=== PATIENT | female | born 1990 | race Caucasian/White ===

== ENCOUNTER → 2016-11-24 | Outpatient (CLI) | payer SELFPAY ==
[2015-12-12 08:54] VITALS: BP 123/90
--- NOTE | 2016-11-24 09:26 | RAD ---
HISTORY: Pain Study: Lumbar spine series Comparison: None Findings: There is mild to moderate disc space narrowing throughout. The vertebral body height is well maintai yumi throughout. No fracture for subluxation is seen. The bones are well mineralized. There are mild sclerotic changes of the sets inferiorly with no pars defects. IMPRESSION: Mild to moderate degenerative disc space narrowing throughout and mild osteoarthritic changes of the sets with no acute abnormality seen. Reported By:
== END ==
LOC: RAD 08:41
PROVIDERS: ATTEND Internal Medicine
DX: M54.5 Low back pain (principal)
CPT/HCPCS: 72100

== ENCOUNTER 2017-04-04 03:30 | Emergency (ER) | payer SELFPAY ==
[2017-04-04 03:36] VITALS: BP 144/81; BMI 31.9
--- NOTE | 2017-04-04 03:59 | DR.GENAD ---
HPI - PCP Primary Care Physician: CARA - Complaint/Symptoms Chief Complaint Doctors Comments: Patient admits to stomach pain associated with vomiting and diarrhea for two days Chief Complaint:: ABD PAIN FOR 2 DAYS, N/V/D Self Treatment fo Chief Complaint: TYLENOL - Source History Provided: Patient - Mode of Arrival Mode of Arrival: Ambulatory - Timing Onset of Chief Complaint: 04/02/17 PMH - PMH Past Medical History: No Past Surgical History: Yes Surgical History: Tonsillectomy - Family History History of Family Medical Conditions: Yes Family Medical History: Hypertension - Social History Does patient currently use any type of tobacco product: No Have you used tobacco products in the last 12 months: No Type of Tobacco Use: None Does any household member use tobacco: No Alcohol Use: None Do you use any recreational Drugs:: No Lives With: Family Lives Where: Home - infectious screening Have you traveled outside the country in the last 6 months?: No Isolation: Standard ROS - Review of Systems Constitutional: negative: Diaphoresis Eyes: No Symptoms Reported ENTM: No Symptoms Reported Respiratoy: No Symptoms Reported Cardiovascular: No Symptoms Reported Gastrointestinal/Abdominal: Abdominal Pain Genitourinary: No Symptoms Reported Neurological: No Symptoms Reported Musculoskeletal: No Symptoms Reported Integumentary: No Symptoms Reported Hematologic/Lymphatic: No Symptoms Reported Endocrine: No Symptoms Reported Psychiatric: No Symptoms Reported All Other Systems: Reviewed and Negative PE - Vital Signs Vitals: Temperature 98.3 F Pulse Rate 68 Respiratory Rate 18 Blood Pressure 144/81 O2 Sat by Pulse Oximetry 99 - General General Appearance: Alert, In No Apparent Distress - Head Head Exam: Normal Inspection, Atraumatic - Eyes Eye exam: Normal Appearance, PERRL, EOMI - ENT ENT Exam: Normal Exam TM/Canal Exam: Bilateral Normal Nose Exam: Normal Nose Exam, Sinus Tenderness Mouth Exam: Normal Inspection Throat Exam: Normal Inspection - Neck Neck Exam: Normal Inspection - Chest Chest Inspection: Normal Inspection, Symmetric Chest Wall Rise - Respiratory Respiratory Exam: Normal Lung Sounds Bilat Respiratory Exam: Bilateral Clear to Auscultation - Cardiovascular Cardiovascular Exam: Regular Rate - Abdominal Exam Abdominal Exam: Normal Inspection Abdominal Tenderness: Diffuse - Extremities Extremities Exam: Normal Inspection - Back Back Exam: Normal Inspection, Full ROM - Neurologic Neurological Exam: Alert, Oriented X3, CN II-XII Intact - Psychiatric Psychiatric Exam: Normal Affect, Normal Mood Course - Reevaluation 1st: Improved ROR - Labs Reviewed Laboratory Results Reviewed?: Yes (H pylori positive) Result Diagrams: 04/04/17 04:08 04/04/17 04:08 Laboratory: WBC 10.9 X10^3/uL (3.6-10.0) H 04/04/17 04:08 RBC 4.63 X10^6/uL (3.5-5.4) 04/04/17 04:08 Hgb 12.9 g/dL (12.0-16.0) 04/04/17 04:08 Hct 37.5 % (36.0-47.0) 04/04/17 04:08 MCV 81.0 fL (80.0-100.0) 04/04/17 04:08 MCH 27.8 pg (27.0-34.0) 04/04/17 04:08 MCHC 34.3 g/dL (33.0-35.0) 04/04/17 04:08 RDW 13.6 % (11.6-16.5) 04/04/17 04:08 Plt Count 387 X10^3/uL (150.0-450.0) 04/04/17 04:08 MPV 7.5 fL (7.4-11.0) 04/04/17 04:08 Neut % 64.4 % (42.0-75.0) 04/04/17 04:08 Lymph % 25.5 % (21.0-51.0) 04/04/17 04:08 Murray % 7.8 % (0.0-13.0) 04/04/17 04:08 Eos % 1.9 % (0.9-2.9) 04/04/17 04:08 Baso % 0.4 % (0.2-1.0) 04/04/17 04:08 Neut # 7.0 x10^3/uL (2.2-4.8) H 04/04/17 04:08 Lymph # 2.8 X10^3/uL (1.3-2.9) 04/04/17 04:08 Murray # 0.9 x10^3/uL (0.3-0.8) H 04/04/17 04:08 Eos # 0.2 x10^3/uL (0.0-0.2) 04/04/17 04:08 Baso # 0.0 X10^3/uL (0.0-0.1) 04/04/17 04:08 Absolute Nucleated RBC 0.0 /100WBC 04/04/17 04:08 Sodium 139 mmol/L (136-145) 04/04/17 04:08 Corrected Sodium 139 mmol/L (136-145) 04/04/17 04:08 Potassium 3.8 mmol/L (3.5-5.1) 04/04/17 04:08 Chloride 104 mmol/L (98-107) 04/04/17 04:08 Carbon Dioxide 29.1 mmol/L (21-32) 04/04/17 04:08 BUN 9 mg/dL (7-18) 04/04/17 04:08 Creatinine 0.68 mg/dL (0.55-1.02) 04/04/17 04:08 Est GFR (MDRD) Af Amer > 60 (>60) 04/04/17 04:08 Est GFR (MDRD) Non-Af > 60 (>60) 04/04/17 04:08 Glucose 111 mg/dL (65-99) H 04/04/17 04:08 Calcium 8.3 mg/dL (8.5-10.1) L 04/04/17 04:08 Corrected Calcium TNP 04/04/17 04:08 Total Bilirubin 0.20 mg/dL (0.2-1.0) 04/04/17 04:08 AST 15 Units/L (15-37) 04/04/17 04:08 ALT 27 Units/L (12-78) 04/04/17 04:08 Alkaline Phosphatase 60 Units/L (46-116) 04/04/17 04:08 C-Reactive Protein 8.20 mg/L (0-3.0) H 04/04/17 04:08 Total Protein 7.4 g/dL (6.4-8.2) 04/04/17 04:08 Albumin 3.7 g/dL (3.4-5.0) 04/04/17 04:08 Globulin 3.7 g/dL (2.5-4.5) 04/04/17 04:08 Albumin/Globulin Ratio 1.0 Ratio (1.1-2.1) L 04/04/17 04:08 Specimen Type Clean catch urine 04/04/17 03:57 Urine Color Yellow (YELLOW) 04/04/17 03:57 Urine Appearance Slightly hazy (CLEAR) 04/04/17 03:57 Urine pH 5.0 (5.0 - 8.0) 04/04/17 03:57 Ur Specific [place] 1.025 (1.000-1.030) 04/04/17 03:57 Urine Protein 1+ (NEGATIVE) 04/04/17 03:57 Urine Glucose (UA) Negative (NEGATIVE) 04/04/17 03:57 Urine Ketones Negative (NEGATIVE) 04/04/17 03:57 Urine Occult Blood 5+ (NEGATIVE) 04/04/17 03:57 Urine Nitrite Negative (NEGATIVE) 04/04/17 03:57 Urine Bilirubin Negative (NEGATIVE) 04/04/17 03:57 Urine Urobilinogen Normal (NORMAL) 04/04/17 03:57 Ur Leukocyte Esterase 1+ (NEGATIVE) 04/04/17 03:57 Urine RBC 70-80 /HPF (NEGATIVE) 04/04/17 03:57 Urine WBC 2-6 /HPF (NEGATIVE) 04/04/17 03:57 Ur Squamous Epith Cells Few /HPF (NEGATIVE) 04/04/17 03:57 Calcium Oxalate Crystal Few /HPF (NEGATIVE) 04/04/17 03:57 Urine Bacteria Trace /HPF (NEGATIVE) 04/04/17 03:57 Ur Culture Indicated? No/not indicated 04/04/17 03:57 H. pylori IgG Antibody Positive (NEGATIVE) A 04/04/17 04:08 - Diagnosis Discharge Problem: Helicobacter pylori gastritis - Discharge Plan Condition: Stable - Follow ups/Referrals Follow ups/Referrals: Carlene MARROQUIN [Primary Care Provider] - 3 days - Instructions
[2017-04-04] MEDS ORDERED: ZOFRAN INJ 4 MG VIAL IVP ONE (04:00)
[2017-04-04] MEDS ORDERED: NS 1000 ML 1,000 ML IV ONE (04:00)
[2017-04-04] MEDS ORDERED: BENTYL I.M. INJ 10 MG IM ONE ×2 (04:01→04:04)
[2017-04-04] MEDS ORDERED: TORADOL 30 MG VIAL IVP ONE (04:01)
[2017-04-04 04:03] LABS: BILIRUBIN,URINE NEGATIVE (NEGATIVE); BLOOD/HEMOGLOBIN,URINE 5+ (NEGATIVE); GLUCOSE, URINE NEGATIVE (NEGATIVE); KETONES,URINE NEGATIVE (NEGATIVE); LEUKOCYTE ESTERASE ,URINE 1+ (NEGATIVE); NITRITES,URINE NEGATIVE (NEGATIVE); PROTEIN,URINE 1+ (NEGATIVE); UROBILINOGEN,URINE NORMAL (NORMAL)
[2017-04-04] MEDS ORDERED: TORADOL 30 MG VIAL ONE (04:03)
[2017-04-04] MEDS ORDERED: NS 1000 ML 1,000 ML ONE (04:03)
[2017-04-04] MEDS ORDERED: ZOFRAN INJ 4 MG VIAL ONE (04:03)
[2017-04-04 04:19] LABS: APPEARANCE,URINE SLIGHTLY HAZY (CLEAR); BACTERIA,URINE TRACE /HPF (NEGATIVE); CALCIUM OXALATE CRYSTALS,UR FEW /HPF (NEGATIVE); COLOR,URINE YELLOW (YELLOW); RBC,URINE 70-80 /HPF (NEGATIVE); SQUAMOUS EPITHELIAL CELL,UR FEW /HPF (NEGATIVE)
[2017-04-04 04:23] LABS: BASOPHILS % (AUTO) 0.4 % (0.2-1.0); EOSINOPHILS # (AUTO) 0.2 x10^3/uL (0.0-0.2); EOSINOPHILS % (AUTO) 1.9 % (0.9-2.9); HEMATOCRIT 37.5 % (36.0-47.0); HEMOGLOBIN 12.9 g/dL (12.0-16.0); LYMPHOCYTES # (AUTO) 2.8 X10^3/uL (1.3-2.9); LYMPHOCYTES % (AUTO) 25.5 % (21.0-51.0); MEAN CORPUSCULAR HEMOGLOBIN 27.8 pg (27.0-34.0); MEAN CORPUSCULAR HGB CONC 34.3 g/dL (33.0-35.0); MEAN PLATELET VOLUME 7.5 fL (7.4-11.0); MONOCYTES # (AUTO) 0.9 x10^3/uL (0.3-0.8); MONOCYTES % (AUTO) 7.8 % (0.0-13.0); NEUTROPHILS % (AUTO) 64.4 % (42.0-75.0); PLATELET COUNT 387 X10^3/uL (150.0-450.0); RED BLOOD COUNT 4.63 X10^6/uL (3.5-5.4); RED CELL DISTRIBUTION WIDTH 13.6 % (11.6-16.5); WHITE BLOOD COUNT 10.9 X10^3/uL (3.6-10.0)
[2017-04-04 04:25] LABS: CHLORIDE 104 mmol/L (98-107); SODIUM 139 mmol/L (136-145)
[2017-04-04 04:34] LABS: ALANINE AMINOTRANSFERASE 27 Units/L (12-78); ALBUMIN 3.7 g/dL (3.4-5.0); ALKALINE PHOSPHATASE 60 Units/L (46-116); ASPARTATE AMINO TRANSFERASE 15 Units/L (15-37); BLOOD UREA NITROGEN 9 mg/dL (7-18); CALCIUM 8.3 mg/dL (8.5-10.1); CARBON DIOXIDE 29.1 mmol/L (21-32); COR NA(FOR HYPERGLY) 139 mmol/L (136-145); CREATININE 0.68 mg/dL (0.55-1.02); GLUCOSE 111 mg/dL (65-99); TOTAL PROTEIN 7.4 g/dL (6.4-8.2); eGFR BLACK RACES > 60 (>60); eGFR NON BLACK RACES > 60 (>60)
[2017-04-04] MEDS ORDERED: PHENERGAN INJ 25 MG IV ONE (05:11)
--- NOTE | 2017-04-04 05:11 | RAD ---
EXAM: Abdomen series and Chest x-ray INDICATION: Abdominal pain COMPARISION: No priors TECHNIQUE: Abdomen flat and upright, two views and PA view of the chest, single view FINDINGS: The lungs are clear. No pneumothorax or pleural effusion. The cardiac silhouette and mediastinum are normal. The bowel gas pattern is nonobstructed. No abnormal mass effect or calcification. The regio nal skeleton is intact. No free air is seen under the hemidiaphragms. IMPRESSION: Normal abdominal series and chest x-ray. Reported By:
[2017-04-04] MEDS ORDERED: PHENERGAN INJ 25 MG ONE (05:12)
== END 2017-04-04 05:43 | disposition home or self-care (01) ==
LOC: ER 03:30
DX: R10.84 Generalized abdominal pain (principal); B96.81 Helicobacter pylori [H. pylori] as the cause of diseases classified elsewhere
CPT/HCPCS: 36415; 74022; 80053; 81001; 85025; 86140; 86677; 96365; 96372; 96374; 96375; 99283; A4222; J0500; J1885; J2405; J2550

== ENCOUNTER 2017-09-13 13:47 | Emergency (ER) | payer OTHER ==
[2017-09-13 13:50] VITALS: BP 130/76; BMI 30.2
--- NOTE | 2017-09-13 14:26 | DR.URIAD ---
HPI - Time Seen Time seen: 14:10 - PCP Primary Care Physician: CARA - Complaint Chief Complaint Doctors Comments: Patient presents with complaint of flu-like symptoms for three days. Chief Complaint:: PT. C/O N/V/D, CHEST SORENESS, COUGH, RUNNY NOSE, SORE THROAT. - Source History Provided: Patient - Mode of Arrival Mode of Arrival: Ambulatory - Timing Onset of Chief Complaint: 09/11/17 PMH - PMH Past Medical History: No Past Surgical History: Yes Surgical History: Tonsillectomy - Family History History of Family Medical Conditions: Yes Family Medical History: Hypertension - Social History Does patient currently use any type of tobacco product: Yes Have you used tobacco products in the last 12 months: Yes Type of Tobacco Use: Cigarettes Does any household member use tobacco: No Alcohol Use: None Do you use any recreational Drugs:: No Lives With: Alone Lives Where: Home - infectious screening In the last 2 months have you had wt loss of >10#?: NO Have you had fever, night sweats or hemotysis?: No Have you traveled outside the country in the last 6 months?: No Isolation: Standard ROS - Review of Systems Constitutional: No Symptoms Reported Eyes: No Symptoms Reported ENTM: No Symptoms Reported Respiratoy: No Symptoms Reported Cardiovascular: No Symptoms Reported Gastrointestinal/Abdominal: No Symptoms Reported Genitourinary: No Symptoms Reported Neurological: No Symptoms Reported Musculoskeletal: No Symptoms Reported Integumentary: No Symptoms Reported Hematologic/Lymphatic: No Symptoms Reported Endocrine: No Symptoms Reported Psychiatric: No Symptoms Reported All Other Systems: Reviewed and Negative PE - Vital Signs Vitals: Temperature 99.5 F Pulse Rate 98 Respiratory Rate 20 Blood Pressure 130/76 O2 Sat by Pulse Oximetry 98 - General Limitations: No Limitations General Appearance: Alert, In No Apparent Distress - Head Head Exam: Normal Inspection, Atraumatic - Eyes Eye exam: Normal Appearance, PERRL, EOMI - ENT ENT Exam: Normal Exam External Ear Exam: Normal External Inspection TM/Canal Exam: Bilateral Normal Nose Exam: Other (rhinorrhea) Nasal Speculum Exam: Bilateral Normal Mouth Exam: Normal Inspection Throat Exam: Normal Inspection - Neck Neck Exam: Normal Inspection, Full ROM - Chest Chest Inspection: Normal Inspection - Respiratory Respiratory Exam: Normal Lung Sounds Bilat Respiratory Exam: Bilateral Clear to Auscultation - Cardiovascular Cardiovascular Exam: Regular Rate, Normal Rhythm - Abdominal Exam Abdominal Exam: Normal Inspection Abdominal Tenderness: negative: RUQ, RLQ, LUQ, LLQ, Epigastrium, Suprapubic, Diffuse, Mild, Moderate, Severe, Other - Extremeties Extremities Exam: Normal Inspection - Back Back Exam: Normal Inspection - Neurologic Neurological Exam: Alert, Oriented X3, CN II-XII Intact Course - Reevaluation 1st: Improved ROR - Labs Reviewed Laboratory Results Reviewed?: Yes (Influenza A) Laboratory: Influenza Type A (PCR) Positive (NEGATIVE) A 09/13/17 13:58 Influenza Type B (PCR) Negative (NEGATIVE) 09/13/17 13:58 - Diagnosis Discharge Problem: Influenza - Discharge Plan Condition: Stable - Follow ups/Referrals Follow ups/Referrals: Carlene MARROQUIN [Primary Care Provider] - 3 days - Instructions
[2017-09-13] MEDS ORDERED: TORADOL 30 MG VIAL IVP ONE (14:36)
[2017-09-13] MEDS ORDERED: NS 1000 ML 1,000 ML IV ONE (14:36)
[2017-09-13] MEDS ORDERED: TORADOL 30 MG VIAL ONE (14:38)
[2017-09-13] MEDS ORDERED: NS 1000 ML 1,000 ML ONE (14:38)
== END 2017-09-13 15:33 | disposition home or self-care (01) ==
LOC: ER 13:53
DX: J11.1 Influenza due to unidentified influenza virus with other respiratory manifestations (principal)
CPT/HCPCS: 87502; 96365; 96374; 99282; 99283; A4222; J1885